=== PATIENT | female | born 1940 | race Caucasian/White ===

== ENCOUNTER 2016-11-16 10:45 | Outpatient (CLI) | payer MEDICARE, OTHER ==
[~2016-11-16] VITALS: Ht 162.6 cm; Wt 62.7 kg
[~2016-11-16 10:45] MED LIST: BETAPACE 80 MG80 MG PO; BIOTIN5 MG PO; CALTRATE-600600 MG PO; CO Q-10100 MG PO; COUMADIN5 MG PO; COUMADIN7.5 MG PO; FORTEO PEN20 MCG SQ; KLOR-CON M2020 MEQ PO; LASIX40 MG PO; LOVENOX60 MG/0.6 SQ; MULTI-DAY VITAM1 TAB PO; OCUVITE PRESERV1 TAB PO; RESTORIL22.5 MG PO; STOOL SOFTENER240 MG PO; VITAMIN C1000 MG PO; VOLTAREN100 GM TOPICAL; ZINC50 MG PO; ZYRTEC10 MG PO
[2016-11-16 12:32] VITALS: Ht 162.6 cm; Wt 62.7 kg
--- NOTE | 2016-11-16 12:44 | NUR ---
1144-IV SITED TO [facility] BLANCO X 1 22G.
--- NOTE | 2016-11-16 14:40 | NUR ---
1410-IV D/C. 1415-DISCHARGE INSTRUCTIONS REVIEWED. 1425-D/C HOME VIA WHEELCHAIR.
== END 2016-11-16 14:25 | disposition home or self-care (01) ==
LOC: D.OPS 10:45
DX: Z95.2 Presence of prosthetic heart valve (principal)

== ENCOUNTER 2018-01-21 08:58 | Outpatient (CLI) | payer MEDICARE, OTHER ==
[~2018-01-21] VITALS: Ht 162.6 cm; Wt 58.2 kg
[2018-01-21 10:45] VITALS: Ht 162.6 cm; Wt 58.2 kg
== END 2018-01-21 11:45 | disposition home or self-care (01) ==
LOC: D.OPS 08:58
DX: Z95.2 Presence of prosthetic heart valve (principal)

== ENCOUNTER 2018-04-11 11:02 | Emergency (ER) | payer MEDICARE, OTHER ==
[~2018-04-11] VITALS: Ht 162.6 cm; Wt 59.1 kg
[2018-04-11 11:12] VITALS: Ht 162.6 cm; Wt 59.1 kg
[2018-04-11] MEDS ORDERED: VOLTAREN75 MG PO (13:19)
[2018-04-11 13:44] VITALS: BP 127/62
== END 2018-04-11 13:46 | disposition home or self-care (01) ==
LOC: D.ER 11:02
DX: M79.662 Pain in left lower leg (principal); I45.6 Pre-excitation syndrome

== ENCOUNTER 2019-01-25 08:44 | Outpatient (CLI) | payer MEDICARE, OTHER ==
[~2019-01-25] VITALS: Ht 162.6 cm; Wt 57.3 kg
[~2019-01-25 08:44] MED LIST changes: -RESTORIL22.5 MG PO; +TEMAZEPAM30 MG PO; +VOLTAREN75 MG PO
[2019-01-25 10:20] VITALS: BP 122/65; Ht 162.6 cm; Wt 57.3 kg
--- NOTE | 2019-01-25 12:18 | NUR ---
1210 IV REMOVED AND PRESSURE HELD AND COBAND APPLIED TO LT WRIST
== END 2019-01-25 12:19 | disposition home or self-care (01) ==
LOC: D.OPS 08:44
PROVIDERS: ATTEND Internal Medicine Cardiovascular Disease
DX: Z95.2 Presence of prosthetic heart valve (principal)

== ENCOUNTER 2019-03-03 12:48 | Inpatient (IN) | payer MEDICARE, OTHER ==
[~2019-03-03] VITALS: Ht 162.6 cm; Wt 57.3 kg
[2019-03-03 14:29] LABS: HEMATOCRIT 25.6 % (36.0-48.0); HEMOGLOBIN 8.5 g/dL (12-16); LYMPHOCYTES 10.9 % (15-50); MCH 33.6 pg (26.0-34.0); MCHC 33.2 g/dL (31.0-37.0); MCV 101.2 fL (80.0-100.0); MEAN PLATELET VOLUME 9.4 fL (7.4-10.4); NEUTROPHILS 78.4 % (40-80); PLATELET COUNT 170 10x3/uL (130-400); RBC 2.53 10x6/uL (4.00-5.40); RDW 14.6 % (11.5-14.5); WBC 8.1 10x3/uL (4.8-10.8)
[2019-03-03 14:39] LABS: ANION GAP 13.1 mmol/L (8-16); CALCIUM 9.6 mg/dL (8.5-10.1); CARBON DIOXIDE 25.5 mmol/L (21.0-32.0); CREATININE - SERUM 0.9 mg/dL (0.6-1.3); POTASSIUM - SERUM 3.6 mmol/L (3.5-5.1)
[2019-03-03 14:45] LABS: ALBUMIN 2.7 g/dL (3.4-5.0); BILIRUBIN - TOTAL 0.86 mg/dL (0.2-1.3); MAGNESIUM - SERUM 1.7 mg/dL (1.8-2.4); PROTEIN - SERUM 5.9 g/dL (6.4-8.2)
[2019-03-03 17:09] LABS: INR 1.1 (0.85-1.17); PROTIME 13.7 SECONDS (11.6-15.0)
--- NOTE | 2019-03-03 18:46 | NUR ---
IN AND OUT CATH PERFORMED. PT UNABLE TO AMBULATE.
[2019-03-03 18:55] LABS: APPEARANCE CLEAR (CLEAR); BILIRUBIN NEGATIVE (NEGATIVE); COLOR YELLOW (YELLOW); GLUCOSE NEGATIVE (NEGATIVE); KETONE SMALL mg/dL (NEGATIVE); NITRITE NEGATIVE (NEGATIVE); PROTEIN NEGATIVE (NEGATIVE); UROBILINOGEN NORMAL (NORMAL)
--- NOTE | 2019-03-03 19:40 | NUR ---
REPORT TO CORRIE CASTILLO AT EXT 2261. PATIENT BEING ADMITTED TO ROOM 2215. REPORT TO LEATHER SEASONERGRECIA DENTON WELL.
--- NOTE | 2019-03-03 20:35 | NUR ---
PT ARRIVED TO FLOOR FROM ER VIA STRETCHER. LEFT HIP INCISION NO REDNESS AND EDGES APPROXIMATED. PT DENIES PAIN. STATES SHE IS UNABLE TO AMBULATE, CANNOT VOID ON BEDPAN AND REQUESTS A CALVIN BE PLACED. WILL CALL PHYSICIAN. REVIEWED HOME MEDS AND HISTORY. PLACED SCD'S AND TELEMETRY ON PT. OXYGEN SATS IN THE 80'S, PLACED 2L/NC ON PT. GAVE TURKEY SANDWICH AND WATER. NS INFUSING. NO OTHER NEEDS. WILL CONTINUE TO MONITOR.
[2019-03-03 21:16] VITALS: BP 132/48
[2019-03-03] MEDS ORDERED: LOPRESSOR25 MG PO (21:28)
[2019-03-03] MEDS ORDERED: KENALOG 0.1 % 115 GM TOPICAL (21:36)
--- NOTE | 2019-03-03 23:00 | NUR ---
INSERTED 16FR CALVIN CATHETER WITH NO DIFFICULTY. RECEIVED 400+ CLEAR YELLOW URINE. NO OTHER NEEDS. WILL CONTINUE TO MONITOR.
[2019-03-04 01:34] VITALS: BP 132/48; Ht 162.6 cm; Wt 57.3 kg
[2019-03-04 04:37] VITALS: BP 105/43
[2019-03-04 06:38] LABS: BASOPHILS 0.5 % (0-2); EOSINOPHILS 3.4 % (0-7); HEMATOCRIT 22.6 % (36.0-48.0); IMMATURE GRANULOCYTES 0.6 % (0-5); LYMPHOCYTES 18.4 % (15-50); MCH 33.2 pg (26.0-34.0); MCHC 32.7 g/dL (31.0-37.0); MCV 101.3 fL (80.0-100.0); MEAN PLATELET VOLUME 9.6 fL (7.4-10.4); MONOCYTES 15.6 % (2-11); NEUTROPHILS 61.5 % (40-80); PLATELET COUNT 201 10x3/uL (130-400); RBC 2.23 10x6/uL (4.00-5.40); RDW 14.7 % (11.5-14.5); WBC 6.4 10x3/uL (4.8-10.8)
[2019-03-04 06:40] LABS: ANION GAP 14.4 mmol/L (8-16); CALCIUM 8.8 mg/dL (8.5-10.1); CARBON DIOXIDE 21.7 mmol/L (21.0-32.0); CREATININE - SERUM 0.8 mg/dL (0.6-1.3); MAGNESIUM - SERUM 1.7 mg/dL (1.8-2.4); PHOSPHOROUS 2.5 mg/dL (2.5-4.9); POTASSIUM - SERUM 3.1 mmol/L (3.5-5.1)
[2019-03-04 06:42] LABS: HEMOGLOBIN 7.4 g/dL (12-16)
--- NOTE | 2019-03-04 07:33 | NUR ---
CALLED CRITICAL [facility] [address] ISSA. ORDERED 1 UNIT PRBC TO BE TRANSFUSED.
[2019-03-04 08:22] VITALS: BP 121/52
--- NOTE | 2019-03-04 08:36 | HP ---
PATIENT: DAWIT CASAS MEDICAL RECORD: [id number] ACCOUNT: [id number] LOCATION:D.MS [id number] : 41 ADMISSION DATE: 03/03/19 PCP: BECKY ISSA MD HISTORY AND PHYSICAL EXAMINATION DATE OF ADMISSION: 03/03/2019 HISTORY OF PRESENT ILLNESS: This is a 78-year-old female who was admitted under med acquisition cost estimator. The patient underwent left total hip arthroplasty on 02/27/[address] Maldonado at [facility] in [facility]. The patient states she was discharged the next day expecting no significant problems. She did very well after her right total hip arthroplasty several years ago. She was sent home, figured out that she really could not walk and she has some left lower extremity edema, she was very weak and she presented here. PAST MEDICAL HISTORY: She has paroxysmal atrial fibrillation, followed by Dr. Tabares in [place]. History of mitral valve insufficiency. 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 She has had uterine cancer in 1997. Macular degeneration. She states she had a postoperative PE in 2012. PAST SURGICAL HISTORY: She has had mitral valve replacement. She had a partial colectomy in 2003 due to noncancerous reasons. She has had cholecystectomy. She did left total hip arthroplasty in 2007. She had a right total knee arthroplasty in 2005 and then a revision in 2012. She has had a pacemaker placed. She has had hysterectomy. She has had inferior vena cava filter placed in 2012, ORIF of femur fracture in the past. ALLERGIES: SULFA AND NICKEL AND MORPHINE MAKE HER LOOPY. SHE DOES NOT WANT MORPHINE. HOME MEDICATIONS: Include metoprolol 25 mg twice a day, temazepam 30 mg p.o. at bedtime p.r.n. sleep, Lasix 20 mg every day, potassium 20 mEq every day, Coumadin 5 mg every day, Zyrtec 10 mg once a day, multivitamin once a day, and calcium plus D. SOCIAL HISTORY: She is , retired. FAMILY HISTORY: Father of bladder cancer. He also had Alzheimer's dementia. Mother of old age. She had a history of breast cancer. HABITS: No tobacco. She drinks occasional wine. No drugs. REVIEW OF SYSTEMS: GENERAL: No major weight changes. HEENT: No particular sinus or allergy problems. RESPIRATORY: No history of asthma or emphysema. CARDIAC: See above history. GASTROINTESTINAL: Denies diarrhea, constipation or heartburn. GENITOURINARY: No significant problems there. MUSCULOSKELETAL: She has had osteoarthritis and joint replacements. NEUROLOGIC: No migraines or seizures. PSYCHIATRIC: Denies depression or melancholia. PHYSICAL EXAMINATION: HISTORY AND PHYSICAL [id number] DAWIT CASAS VITAL SIGNS: Temperature 97.7, pulse 90, respirations 20, blood pressure 153/76. GENERAL: Generally, she appears in no acute distress. She is lying comfortably in bed in the Emergency Department. SKIN: Warm and dry. HEENT: Grossly within normal limits. NECK: Supple. No JVD or bruit. HEART: At this time regular rate and rhythm. There is no murmur. LUNGS: Clear. ABDOMEN: Soft. EXTREMITIES: She has wound to the left hip and no sign of infection. She has 2+ lower extremity edema on the left leg. LABORATORY DATA: CBC with a white count of 8100, hemoglobin 8.5, hematocrit 25.6. Basic metabolic panel is unremarkable. INR 1.10. Magnesium 1.7. Liver functions are fine. D-dimer elevated at 1.28. X-ray of the left hip shows arthroplasty hardware intact. IMAGING: Chest x-ray shows no acute process. She had left venous Doppler ultrasound for the swelling throughout her leg. There was no DVT found. CTA of the chest with PE protocol was done for elevated D-dimer, there is no PE, nothing remarkable. ASSESSMENT: 1. Status post left total hip arthroplasty with weakness. 2. Postop anemia. 3. Paroxysmal atrial fibrillation, on chronic Coumadin therapy. PLAN: Physical therapy tomorrow. We will continue Coumadin. planner intern to talk with the patient about discharge to either inpatient facility skilled or home with physical therapy. The patient would really like to go home with physical therapy. Other tests or procedures as warranted. TRANSINT:[id number] Voice Confirmation ID: [id number] DOCUMENT ID: [id number] HISTORY AND PHYSICAL [id number] DAWIT CASAS WILLIAM MD at 0836 CC: [id number] DICTATION DATE: 1940 REGISTERED TRAVEL NURSE: 03/04/19 0341 ADM IN [place] [id number] [place] [id number]
--- NOTE | 2019-03-04 10:00 | NUR ---
STARTED PT UNIT OF BLOOD, PT TOLERATING WELL NO S/S OF DISTRESS PT SPOUSE AT BEDSIDE, CONTINUE WITH PLAN OF CARE
--- NOTE | 2019-03-04 12:43 | NUR ---
PT BLOOD COMPLETED, NO OTHER NEEDS VOICED
[2019-03-04 19:30] VITALS: BP 127/55
[2019-03-05 00:30] VITALS: BP 120/49
[2019-03-05 04:30] VITALS: BP 97/36
[2019-03-05 06:11] LABS: BASOPHILS 0.4 % (0-2); EOSINOPHILS 3.5 % (0-7); IMMATURE GRANULOCYTES 1.2 % (0-5); LYMPHOCYTES 18.3 % (15-50); MCH 32.1 pg (26.0-34.0); MCHC 32.6 g/dL (31.0-37.0); MEAN PLATELET VOLUME 9.4 fL (7.4-10.4); MONOCYTES 13.4 % (2-11); NEUTROPHILS 63.2 % (40-80); PLATELET COUNT 232 10x3/uL (130-400); RDW 15.9 % (11.5-14.5)
[2019-03-05 06:13] LABS: HEMATOCRIT 28.8 % (36.0-48.0); HEMOGLOBIN 9.4 g/dL (12-16); MCV 98.3 fL (80.0-100.0); RBC 2.93 10x6/uL (4.00-5.40); WBC 8.2 10x3/uL (4.8-10.8)
[2019-03-05 06:26] LABS: INR 1.52 (0.85-1.17); PROTIME 17.7 SECONDS (11.6-15.0)
[2019-03-05 06:47] LABS: ANION GAP 11.6 mmol/L (8-16); CALCIUM 8.6 mg/dL (8.5-10.1); CREATININE - SERUM 0.8 mg/dL (0.6-1.3)
[2019-03-05 06:48] LABS: POTASSIUM - SERUM 3.6 mmol/L (3.5-5.1)
[2019-03-05 07:46] VITALS: BP 132/55
--- NOTE | 2019-03-05 09:08 | NUR ---
PATIENT SITTING UP IN BED STATED SHE WANTYED TO WALK TO SINK TO [facility] UP, ENCOURAGED PT TO WAIT FOR PT SO WE CAN KNOW HER BASELINE WITH RECENT HIP SURGERY. PT AGREEABLE, NO OTHER NEEDS VOICED, CONTINUE WITH PLAN OF CARE.
--- NOTE | 2019-03-05 10:39 | NUR ---
I have reviewed this patient and I concur with the Shift Assessment completed by the Licensed Practical Nurse today this shift.
[2019-03-05 12:08] VITALS: BP 121/61
--- NOTE | 2019-03-05 12:42 | MORECARE ---
CASE MANAGEMENT DISCHARGE SUMMARY PATIENT: DAWIT CASAS UNIT: [id number] ADM DATE: 03/03/19 AGE: 78 : 41 SEX: F ROOM/BED: D.2215 AUTHOR: LIS CHIRINOS PHYSICIAN: REFERRING PHYSICIAN: BECKY ISSA MD DATE OF SERVICE: 03/05/19 Discharge Plan Patient Name: DAWIT CASAS [facility] [facility] 1940 Planned Disposition: Inpatient Rehab Anticipated Discharge Date: Discharge Date: Expected LOS: Initial Reviewer: [email or web address] Initial Review Date: 03/03/2019 Generated: 03/05/19 1:42 pm DCPIA - Discharge Planning Initial Assessment Updated by [email or web address]: Priscila Terry on 03/05/19 12:41 pm * Is the patient Alert and Oriented? Yes * How many steps to enter\exit or inside your home? 2 steps * PCP DR Lo Clemente New to [place] [id number] * Pharmacy [employer] for moth exterminator meds [facility] in [place] for short term meds * Preadmission Environment Home with Family * ADLs Partial Dependent * Partial ADLs (Assistance needed) Ambulation * Equipment Other * Other Equipment two Rollators Raised commode walk in tub * List name and contact numbers for known caregivers / representatives who currently or will assist patient after discharge: [facility]- [phone] * Verbal permission to speak to the caregivers and representatives has been obtained from the patient. No * Community resources currently utilized None * Please name any agencies selected above. N/A * Additional services required to return to the preadmission environment? Yes * Can the patient safely return to the preadmission environment? Yes * Has this patient been hospitalized within the prior 30 days at any hospital? Yes Patient Name: DAWIT CASAS Page [id number] at 1242 All edits/amendments must be made on the electronic document DICTATION DATE: 03/05/19 1242 DESIGN CELL ENGINEER: LAURA 03/05/19 1242 RPT#: [id number] DC DATE: STATUS: ADM IN [facility] [address] [place] [address] END OF REPORT
--- NOTE | 2019-03-05 13:02 | MORECARE ---
CASE MANAGEMENT DISCHARGE SUMMARY PATIENT: DAWIT CASAS UNIT: [id number] ADM DATE: 03/03/19 AGE: 78 : 41 SEX: F ROOM/BED: D.8085 AUTHOR: CANDIS,DOC PHYSICIAN: REFERRING PHYSICIAN: CHET ISSA MD DATE OF SERVICE: 03/05/19 Discharge Plan Patient Name: DAWIT CASAS Facility: [facility]:[place] : 1940 Planned Disposition: Inpatient Rehab Anticipated Discharge Date: Discharge Date: Expected LOS: Initial Reviewer: [email or web address] Initial Review Date: 03/03/2019 Generated: 03/05/19 2:01 pm Comments DCP- Discharge Planning Updated by [email or web address]: Priscila Terry on 03/05/19 11:[address] CM MET THE PATIENT AT THE BEDSIDE. CM EXPLAINED MY ROLE. REQUESTED AND RECEIVED PERMISSION TO PROCEED WITH ASSESSMENT. THE PATIENT HAD JUST COMPLETED HER PHYSICAL THERAPY SESSION. SHE HAD DISCUSSED ACUTE REHAB WITH THE PHYSICAL THERAPIST. SHE EXPLAINED SHE HAD JUST BEEN DISCHARGED AFTER HIP SURGERY W/ DR ZAIDI IN [place]. SHE WAS VERY WEAK AT HOME AND COULD NOT AMBULATE OR TRANSFER SAFELY. SHE HAS A LONG HISTORY OF ORTHOPEDIC INJURIES AND TREATMENTS. CM DISCUSSED SKILLED AND ACUTE REHAB. CM ALSO DISCUSSED HOME HEALTH SERVICES. SHE IS IN AGREEMENT WITH PHYSICAL THERAPY'S RECOMMENDATION FOR ACUTE REHAB. CM REVIEWED PROVIDERS. SHE WANTS TO BE REFERRED TO [facility]. SHE LIVES W/ HER IN [facility]. THERE 2 STEPS TO ENTER HER HOME FROM THE GARAGE. HER ASSSIT WITH HER CARE WHEN NEEDED. SHE HAS 2 ROLLATORS ONE FOR THE HOME AND THE OTHER IN THE CAR FOR OUTSIDE. SHE ALSO HAS A STANDARD WALKER. SHE HAS A WALK IN SHOWER. DENIES ANY ADDITIONAL DME. PCP- [facility]- JUSTIN AND GERONTOLOGY PROMOTIONAL MARKETING AGENT- DR VILLA IN [place]. PHARMACY- [facility]. REFERRAL TO BE FORWARDED TO [facility] WEDNESDAY BY WEEKDAY CM. DCPIA - Discharge Planning Initial Assessment Updated by [id number]: Priscila Terry on 03/05/19 12:41 pm * Is the patient Alert and Oriented? Yes * How many steps to enter\exit or inside your home? 2 steps * PCP DR Lo Clemente New to [address] * Pharmacy [employer] for exterminator termite meds [facility] in [place] for short term meds * Preadmission Environment Home with Family * ADLs Partial Dependent * Partial ADLs (Assistance needed) Ambulation * Equipment Other * Other Equipment two Rollators Raised commode walk in tub * List name and contact numbers for known caregivers / representatives who currently or will assist patient after discharge: [facility] [phone] * Verbal permission to speak to the caregivers and representatives has been obtained from the patient. No * Community resources currently utilized None * Please name any agencies selected above. N/A * Additional services required to return to the preadmission environment? Yes * Can the patient safely return to the preadmission environment? Yes * Has this patient been hospitalized within the prior 30 days at any hospital? Yes Last DP export: 03/05/19 11:42 Patient Name: DAWIT CASAS Page 46780 at 1302 All edits/amendments must be made on the electronic document DICTATION DATE: 03/05/19 1301 BRIDGES AND BUILDINGS SUPERVISOR: LAURA 03/05/19 1301 RPT#: [id number] DC DATE: STATUS: [facility] [address] [place] [address] END OF REPORT
[2019-03-05 16:17] VITALS: BP 127/88
[2019-03-05 20:01] VITALS: BP 113/55
[2019-03-06 00:30] VITALS: BP 119/64
[2019-03-06 05:00] VITALS: BP 121/70
[2019-03-06 05:45] LABS: BASOPHILS 0.3 % (0-2); HEMATOCRIT 28.3 % (36.0-48.0); HEMOGLOBIN 9.3 g/dL (12-16); IMMATURE GRANULOCYTES 0.9 % (0-5); LYMPHOCYTES 15.2 % (15-50); MCH 32.5 pg (26.0-34.0); MCHC 32.9 g/dL (31.0-37.0); MEAN PLATELET VOLUME 9.4 fL (7.4-10.4); MONOCYTES 14.8 % (2-11); NEUTROPHILS 65.8 % (40-80); PLATELET COUNT 249 10x3/uL (130-400); RBC 2.86 10x6/uL (4.00-5.40); RDW 15.6 % (11.5-14.5); WBC 7.6 10x3/uL (4.8-10.8)
[2019-03-06 06:15] LABS: INR 2.03 (0.85-1.17); PROTIME 22.3 SECONDS (11.6-15.0)
[2019-03-06 06:26] LABS: ANION GAP 8.8 mmol/L (8-16); CALCIUM 8.2 mg/dL (8.5-10.1); CARBON DIOXIDE 29.8 mmol/L (21.0-32.0); CREATININE - SERUM 0.8 mg/dL (0.6-1.3); POTASSIUM - SERUM 3.6 mmol/L (3.5-5.1)
[2019-03-06 08:33] VITALS: BP 149/72
[2019-03-06] MEDS ORDERED: COUMADIN5 MG PO (08:52)
--- NOTE | 2019-03-06 11:11 | MORECARE ---
CASE MANAGEMENT DISCHARGE SUMMARY PATIENT: DAWIT CASAS UNIT: [id number] ADM DATE: 03/03/19 AGE: 78 : 41 SEX: F ROOM/BED: D.3945 AUTHOR: CANDIS,DOC PHYSICIAN: REFERRING PHYSICIAN: CHET ISSA MD DATE OF SERVICE: 03/06/19 Discharge Plan Patient Name: DAWIT CASAS Facility: [facility]:[place] : 1940 Planned Disposition: Inpatient Rehab Anticipated Discharge Date: Discharge Date: Expected LOS: Initial Reviewer: [email or web address] Initial Review Date: 03/03/2019 Generated: 03/06/19 12:10 pm Comments DCP- Discharge Planning Updated by [email or web address]: Priscila Terry on 03/05/19 11:[address] CM MET THE PATIENT AT THE BEDSIDE. CM EXPLAINED MY ROLE. REQUESTED AND RECEIVED PERMISSION TO PROCEED WITH ASSESSMENT. THE PATIENT HAD JUST COMPLETED HER PHYSICAL THERAPY SESSION. SHE HAD DISCUSSED ACUTE REHAB WITH THE PHYSICAL THERAPIST. SHE EXPLAINED SHE HAD JUST BEEN DISCHARGED AFTER HIP SURGERY W/ DR ZAIDI IN [place]. SHE WAS VERY WEAK AT HOME AND COULD NOT AMBULATE OR TRANSFER SAFELY. SHE HAS A LONG HISTORY OF ORTHOPEDIC INJURIES AND TREATMENTS. CM DISCUSSED SKILLED AND ACUTE REHAB. CM ALSO DISCUSSED HOME HEALTH SERVICES. SHE IS IN AGREEMENT WITH PHYSICAL THERAPY'S RECOMMENDATION FOR ACUTE REHAB. CM REVIEWED PROVIDERS. SHE WANTS TO BE REFERRED TO [facility]UTE RE[facility]. SHE LIVES W/ HER IN [facility]. THERE 2 STEPS TO ENTER HER HOME FROM THE GARAGE. HER ASSSIT WITH HER CARE WHEN NEEDED. SHE HAS 2 ROLLATORS ONE FOR THE HOME AND THE OTHER IN THE CAR FOR OUTSIDE. SHE ALSO HAS A STANDARD WALKER. SHE HAS A WALK IN SHOWER. DENIES ANY ADDITIONAL DME. PCP- [facility]- JUSTIN AND GERONTOLOGY SUPERVISOR FUR FLOOR WORKER- DR VILLA IN [place]. PHARMACY- [facility]. REFERRAL TO BE FORWARDED TO [facility] WEDNESDAY BY WEEKDAY CM. DCPIA - Discharge Planning Initial Assessment Updated by [email or web address]: Priscila Terry on 03/05/19 12:41 pm * Is the patient Alert and Oriented? Yes * How many steps to enter\exit or inside your home? 2 steps * PCP DR Lo Clemente New to [address] * Pharmacy [employer] for fpc meds [facility] in [place] for short term meds * Preadmission Environment Home with Family * ADLs Partial Dependent * Partial ADLs (Assistance needed) Ambulation * Equipment Other * Other Equipment two Rollators Raised commode walk in tub * List name and contact numbers for known caregivers / representatives who currently or will assist patient after discharge: [facility] [phone] * Verbal permission to speak to the caregivers and representatives has been obtained from the patient. No * Community resources currently utilized None * Please name any agencies selected above. N/A * Additional services required to return to the preadmission environment? Yes * Can the patient safely return to the preadmission environment? Yes * Has this patient been hospitalized within the prior 30 days at any hospital? Yes External Providers External Provider: [facility] Contact Date: Service Request Date: Service Type: Resolution: Reviewer: Comments: Last DP export: 03/05/19 12:02 Patient Name: DAWIT CASAS Page 76805 at 1111 All edits/amendments must be made on the electronic document DICTATION DATE: 03/06/19 111 SHUTTLE FINAL INSPECTOR: LAURA 03/06/19 111 RPT#: [id number] DC DATE: STATUS: ADM IN [facility] [address] [place] [address] END OF REPORT
--- NOTE | 2019-03-06 11:52 | MORECARE ---
CASE MANAGEMENT DISCHARGE SUMMARY PATIENT: DAWIT CASAS UNIT: [id number] ADM DATE: 03/03/19 AGE: 78 : 41 SEX: F ROOM/BED: D.7125 AUTHOR: CANDIS,DOC PHYSICIAN: REFERRING PHYSICIAN: CHET ISSA MD DATE OF SERVICE: 03/06/19 Discharge Plan Patient Name: DAWIT CASAS Facility: [facility]:[place] : 1940 Planned Disposition: Inpatient Rehab Anticipated Discharge Date: Discharge Date: Expected LOS: Initial Reviewer: [id number] Initial Review Date: 03/03/2019 Generated: 03/06/19 12:52 pm Comments DCP- Discharge Planning Updated by [id number]: Farhana Martinez on 03/06/19 10:[address] SPOKE WITH PATIENT ABOUT DC PLAN, SHE WOULD LIKE TO GO TO [facility]. REFERRAL SENT TO [place]. IMM SERVED AND EXPLAINED. AT BEDSIDE. CM TO JOEL TO FOLLOW AND ASSIST NEEDED DCP- Discharge Planning Updated by [id number]: Priscila Terry on 03/05/19 11:[address] CM MET THE PATIENT AT THE BEDSIDE. CM EXPLAINED MY ROLE. REQUESTED AND RECEIVED PERMISSION TO PROCEED WITH ASSESSMENT. THE PATIENT HAD JUST COMPLETED HER PHYSICAL THERAPY SESSION. SHE HAD DISCUSSED ACUTE REHAB WITH THE PHYSICAL THERAPIST. SHE EXPLAINED SHE HAD JUST BEEN DISCHARGED AFTER HIP SURGERY W/ DR ZAIDI IN [place]. SHE WAS VERY WEAK AT HOME AND COULD NOT AMBULATE OR TRANSFER SAFELY. SHE HAS A LONG HISTORY OF ORTHOPEDIC INJURIES AND TREATMENTS. CM DISCUSSED SKILLED AND ACUTE REHAB. CM ALSO DISCUSSED HOME HEALTH SERVICES. SHE IS IN AGREEMENT WITH PHYSICAL THERAPY'S RECOMMENDATION FOR ACUTE REHAB. CM REVIEWED PROVIDERS. SHE WANTS TO BE REFERRED TO [facility]UTE RE[facility]. SHE LIVES W/ HER IN [facility]. THERE 2 STEPS TO ENTER HER HOME FROM THE GARAGE. HER ASSSIT WITH HER CARE WHEN NEEDED. SHE HAS 2 ROLLATORS ONE FOR THE HOME AND THE OTHER IN THE CAR FOR OUTSIDE. SHE ALSO HAS A STANDARD WALKER. SHE HAS A WALK IN SHOWER. DENIES ANY ADDITIONAL DME. PCP- [facility]- JUSTIN AND GERONTOLOGY IT TECHNICAL SUPPORT SPECIALIST- DR VILLA IN [place]. PHARMACY- [facility]. REFERRAL TO BE FORWARDED TO [facility] WEDNESDAY BY DAY CM. LALAPIA - Discharge Planning Initial Assessment Updated by [email or web address]: Priscila Terry on 03/05/19 12:41 pm * Is the patient Alert and Oriented? Yes * How many steps to enter\exit or inside your home? 2 steps * PCP DR Lo Clemente New to [address] * Pharmacy [employer] for custodial meds [facility] in [facility] for short term meds * Preadmission Environment Home with Family * ADLs Partial Dependent * Partial ADLs (Assistance needed) Ambulation * Equipment Other * Other Equipment two Rollators Raised commode walk in tub * List name and contact numbers for known caregivers / representatives who currently or will assist patient after discharge: [facility] [phone] * Verbal permission to speak to the caregivers and representatives has been obtained from the patient. No * Community resources currently utilized None * Please name any agencies selected above. N/A * Additional services required to return to the preadmission environment? Yes * Can the patient safely return to the preadmission environment? Yes * Has this patient been hospitalized within the prior 30 days at any hospital? Yes Coverage Notice Reviewer: [email or web address] Desiree Martinez Notice Issued Date-Time: 03/06/2019 11:25 Notice Type: IM Discharge Notice Notice Delivered To: Patient Relationship to Patient: Writer Editor Name: Delivery Method: HAND - Hand Delivered Giovanna Days: Prior Verbal Notification: Recipient Understood Notice: Yes Recipient Signature: Yes Med Rec Note Co-signed by Attending: Coverage Notice Comment: Last DP export: 03/06/19 10:11 Patient Name: DAWIT CASAS Page 31369 at 1152 All edits/amendments must be made on the electronic document DICTATION DATE: 03/06/19 1152 WHEEL PRESS OPERATOR: LAURA 03/06/19 1152 RPT#: [id number] DC DATE: STATUS: ADM IN [facility] [address] [place] [address] END OF REPORT
[2019-03-06 13:34] VITALS: BP 134/71
--- NOTE | 2019-03-06 14:54 | MORECARE ---
CASE MANAGEMENT DISCHARGE SUMMARY PATIENT: DAWIT CASAS UNIT: [id number] ADM DATE: 03/03/19 AGE: 78 : 41 SEX: F ROOM/BED: D.1715 AUTHOR: CANDIS,DOC PHYSICIAN: REFERRING PHYSICIAN: BECKY ISSA MD DATE OF SERVICE: 03/06/19 Discharge Plan Patient Name: DAWIT CASAS Facility: [facility]:[place] : 1940 Planned Disposition: Inpatient Rehab Anticipated Discharge Date: Discharge Date: Expected LOS: Initial Reviewer: [email or web address] Initial Review Date: 03/03/2019 Generated: 03/06/19 3:54 pm Comments DCP- Discharge Planning Updated by [email or web address]: Farhana Martinez on 03/06/19 1:[address] PATIENT HAS BEEN ACCEPTED TO [facility], THEY WILL PICK HER UP AT 3:30 TO 4:00PM DCP- Discharge Planning Updated by [id number]: Farhana Martinez on 03/06/19 10:[address] SPOKE WITH PATIENT ABOUT DC PLAN, SHE WOULD LIKE TO GO TO [facility]. REFERRAL SENT TO [place]. JOSE JUAN SERVED AND EXPLAINED. AT BEDSIDE. CM TO JOEL TO FOLLOW AND ASSIST NEEDED DCP- Discharge Planning Updated by [id number]: Priscila Terry on 03/05/19 11:[address] CM MET THE PATIENT AT THE BEDSIDE. CM EXPLAINED MY ROLE. REQUESTED AND RECEIVED PERMISSION TO PROCEED WITH ASSESSMENT. THE PATIENT HAD JUST COMPLETED HER PHYSICAL THERAPY SESSION. SHE HAD DISCUSSED ACUTE REHAB WITH THE PHYSICAL THERAPIST. SHE EXPLAINED SHE HAD JUST BEEN DISCHARGED AFTER HIP SURGERY W/ DR ZAIDI IN [place]. SHE WAS VERY WEAK AT HOME AND COULD NOT AMBULATE OR TRANSFER SAFELY. SHE HAS A LONG HISTORY OF ORTHOPEDIC INJURIES AND TREATMENTS. CM DISCUSSED SKILLED AND ACUTE REHAB. CM ALSO DISCUSSED HOME HEALTH SERVICES. SHE IS IN AGREEMENT WITH PHYSICAL THERAPY'S RECOMMENDATION FOR ACUTE REHAB. CM REVIEWED PROVIDERS. SHE WANTS TO BE REFERRED TO [facility] ACUTE REHAB. SHE LIVES W/ HER IN [facility]. THERE 2 STEPS TO ENTER HER HOME FROM THE GARAGE. HER ASSSIT WITH HER CARE WHEN NEEDED. SHE HAS 2 ROLLATORS ONE FOR THE HOME AND THE OTHER IN THE CAR FOR OUTSIDE. SHE ALSO HAS A STANDARD WALKER. SHE HAS A WALK IN SHOWER. DENIES ANY ADDITIONAL DME. PCP- SIL[facility]- IM AND GERONTOLOGY SUGAR CANE GROWER- DR VILLA IN [place]. PHARMACY- [facility]. REFERRAL TO BE FORWARDED TO [facility] WEDNESDAY BY WEEKDAY CMMatt DCPIA - Discharge Planning Initial Assessment Updated by [id number]: Priscila Terry on 03/05/19 12:41 pm * Is the patient Alert and Oriented? Yes * How many steps to enter\exit or inside your home? 2 steps * PCP DR Lo Clemente New to [address] * Pharmacy [employer] for buttermaker meds [facility] in [facility] for short term meds * Preadmission Environment Home with Family * ADLs Partial Dependent * Partial ADLs (Assistance needed) Ambulation * Equipment Other * Other Equipment two Rollators Raised commode walk in tub * List name and contact numbers for known caregivers / representatives who currently or will assist patient after discharge: [facility]- [phone] * Verbal permission to speak to the caregivers and representatives has been obtained from the patient. No * Community resources currently utilized None * Please name any agencies selected above. N/A * Additional services required to return to the preadmission environment? Yes * Can the patient safely return to the preadmission environment? Yes * Has this patient been hospitalized within the prior 30 days at any hospital? Yes Coverage Notice Reviewer: [email or web address] Desiree Martinez Notice Issued Date-Time: 03/06/2019 11:25 Notice Type: IM Discharge Notice Notice Delivered To: Patient Relationship to Patient: Car Runner Name: Delivery Method: HAND - Hand Delivered Giovanna Days: Prior Verbal Notification: Recipient Understood Notice: Yes Recipient Signature: Yes Med Rec Note Co-signed by Attending: Coverage Notice Comment: Last DP export: 03/06/19 10:52 Patient Name: DAWIT CASAS Page [id number] at 1454 All edits/amendments must be made on the electronic document DICTATION DATE: 03/06/191453 ARCHITECTURE TECHNICIAN: LAURA 03/06/191453 RPT#: [id number] PA DATE: STATUS: ADM IN [facility] [address] [place] [address] END OF REPORT
--- NOTE | 2019-03-06 16:00 | NUR ---
PATIENT CALVIN REMOVED BY STUDENT AND INSTRUCTOR. DRESSED AND TELEMETRY REMOVED. GOING TO [facility]. DISCHARGE INSTRUCTIONS GIVEN. NO QUESTIONS AT THIS TIME. CALL LIGHT WITHIN REACH.
--- NOTE | 2019-03-06 16:19 | NUR ---
PATIENT TO [facility] .
--- NOTE | 2019-03-09 11:01 | MORECARE ---
CASE MANAGEMENT DISCHARGE SUMMARY PATIENT: DAWIT CASAS UNIT: [id number] ADM DATE: 03/03/19 AGE: 78 : 41 SEX: F ROOM/BED: D.7385 AUTHOR: CANDIS,DOC PHYSICIAN: REFERRING PHYSICIAN: BECKY ISSA MD DATE OF SERVICE: 03/09/19 Discharge Plan Patient Name: DAWIT CASAS Facility: [facility]:[place] : 1940 Planned Disposition: Inpatient Rehab Anticipated Discharge Date: Discharge Date: 03/06/2019 Expected LOS: 0 Initial Reviewer: [email or web address] Initial Review Date: 03/03/2019 Generated: 03/09/19 12:01 pm Comments DCP- Discharge Planning Updated by [email or web address]: Farhana Martinez on 03/06/19 1:[address] PATIENT HAS BEEN ACCEPTED TO [facility], THEY WILL PICK HER UP AT 3:30 TO 4:00PM DCP- Discharge Planning Updated by [id number]: Farhana Martinez on 03/06/19 10:[address] SPOKE WITH PATIENT ABOUT DC PLAN, [facility] REFERRAL SENT TO [place]. JOSE JUAN SERVED AND EXPLAINED. AT BEDSIDE. CM TO JOEL TO FOLLOW AND ASSIST NEEDED DCP- Discharge Planning Updated by [email or web address]: Priscila Terry on 03/05/19 11:[address] CM MET THE PATIENT AT THE BEDSIDE. CM EXPLAINED MY ROLE. REQUESTED AND RECEIVED PERMISSION TO PROCEED WITH ASSESSMENT. THE PATIENT HAD JUST COMPLETED HER PHYSICAL THERAPY SESSION. SHE HAD DISCUSSED ACUTE REHAB WITH THE PHYSICAL THERAPIST. SHE EXPLAINED SHE HAD JUST BEEN DISCHARGED AFTER HIP SURGERY W/ DR ZAIDI IN [place]. SHE WAS VERY WEAK AT HOME AND COULD NOT AMBULATE OR TRANSFER SAFELY. SHE HAS A LONG HISTORY OF ORTHOPEDIC INJURIES AND TREATMENTS. CM DISCUSSED SKILLED AND ACUTE REHAB. CM ALSO DISCUSSED HOME HEALTH SERVICES. SHE IS IN AGREEMENT WITH PHYSICAL THERAPY'S RECOMMENDATION FOR ACUTE REHAB. CM REVIEWED PROVIDERS. SHE [facility]. SHE LIVES W/ HER IN [facility]. THERE 2 STEPS TO ENTER HER HOME FROM THE GARAGE. HER ASSSIT WITH HER CARE WHEN NEEDED. SHE HAS 2 ROLLATORS ONE FOR THE HOME AND THE OTHER IN THE CAR FOR OUTSIDE. SHE ALSO HAS A STANDARD WALKER. SHE HAS A WALK IN SHOWER. DENIES ANY ADDITIONAL DME. PCP- [facility]- IM AND GERONTOLOGY DRUM OPERATOR- DR VILLA IN [place]. PHARMACY- [facility]. [facility]DAY [facility] DCPIA - Discharge Planning Initial Assessment Updated by [email or web address]: Priscila Terry on 03/05/19 12:41 pm * Is the patient Alert and Oriented? Yes * How many steps to enter\exit or inside your home? 2 steps * PCP DR Lo Clemente New to [facility] * Pharmacy [facility] for [facility] med[facility] for short term meds * Preadmission Environment Home with Family * ADLs Partial Dependent * Partial ADLs (Assistance needed) Ambulation * Equipment Other * Other Equipment two Rollators Raised commode walk in tub * List name and contact numbers for known caregivers / representatives who currently or will assist patient after discharge: [facility]- [phone] * Verbal permission to speak to the caregivers and representatives has been obtained from the patient. No * Community resources currently utilized None * Please name any agencies selected above. N/A * Additional services required to return to the preadmission environment? Yes * Can the patient safely return to the preadmission environment? Yes * Has this patient been hospitalized within the prior 30 days at any hospital? Yes Coverage Notice Reviewer: [id number] Desiree Martinez Notice Issued Date-Time: 03/06/2019 11:25 Notice Type: IM Discharge Notice Notice Delivered To: Patient Relationship to Patient: Associate Media Director Name: Delivery Method: HAND - Hand Delivered Giovanna Days: Prior Verbal Notification: Recipient Understood Notice: Yes Recipient Signature: Yes Med Rec Note Co-signed by Attending: Coverage Notice Comment: Last DP export: 03/06/19 1:55 Patient Name: DAWIT CASAS Page 85008 at 1101 All edits/amendments must be made on the electronic document DICTATION DATE: 03/09/19 1100 SOLAR ENERGY SALES SPECIALIST: LAURA 03/09/19 1100 RPT#: [id number] DC DATE:03/06/19 STATUS: DIS IN [facility] [address] [place] [address] END OF REPORT
== END 2019-03-06 16:30 | DRG 812 ==
LOC: D.ER 12:48 → D.MS 18:37
PROVIDERS: Family Medicine; ADMIT Family Medicine; ATTEND Family Medicine
DX: D64.9 Anemia, unspecified (principal); R53.1 Weakness; I48.0 Paroxysmal atrial fibrillation; Z79.01 Long term (current) use of anticoagulants; R60.0 Localized edema; G89.18 Other acute postprocedural pain

== ENCOUNTER 2019-03-23 08:37 | Inpatient (IN) | payer MEDICARE, OTHER ==
[~2019-03-23] VITALS: Ht 162.6 cm; Wt 60.0 kg
[2019-03-23] VITALS (9 sets, daily range): BP systolic 104–146; BP diastolic 38–97; Ht 162.6 cm; Wt 60.0 kg
[~2019-03-23 08:37] MED LIST changes: +KENALOG 0.1 % 115 GM TOPICAL; +LOPRESSOR25 MG PO
--- NOTE | 2019-03-23 08:50 | NUR ---
[facility] # [id number]
--- NOTE | 2019-03-23 09:06 | NUR ---
PT MOVED TO T4
[2019-03-23 09:19] LABS: HEMATOCRIT 27.2 % (36.0-48.0); HEMOGLOBIN 8.8 g/dL (12-16); LYMPHOCYTES 13.2 % (15-50); MCH 33.8 pg (26.0-34.0); MCHC 32.4 g/dL (31.0-37.0); MCV 104.6 fL (80.0-100.0); MEAN PLATELET VOLUME 8.7 fL (7.4-10.4); NEUTROPHILS 75.5 % (40-80); PLATELET COUNT 267 10x3/uL (130-400); RDW 16.7 % (11.5-14.5); WBC 7.5 10x3/uL (4.8-10.8)
--- NOTE | 2019-03-23 09:22 | NUR ---
PT TO CT VIA STRETCHER;
[2019-03-23 09:25] LABS: INR 3.87 (0.85-1.17); PROTIME 37.2 SECONDS (11.6-15.0)
[2019-03-23 09:26] LABS: CALC OSMOLALITY 288 mosm/kg (275-300); CALCIUM 9.6 mg/dL (8.5-10.1); CARBON DIOXIDE 27.5 mmol/L (21.0-32.0); CHLORIDE - SERUM 105 mmol/L (98-107); CREATININE - SERUM 1.3 mg/dL (0.6-1.3); GLUCOSE 121 mg/dL (74-106); POTASSIUM - SERUM 3.4 mmol/L (3.5-5.1); SODIUM 143 mmol/L (136-145); UREA NITROGEN 22 mg/dL (7-18); eGFR NON AFRICAN AMERICAN 42 mL/min (90-120)
[2019-03-23 09:27] LABS: APTT 113.5 SECONDS (22.8-39.4)
[2019-03-23 09:41] LABS: ALBUMIN 3.1 g/dL (3.4-5.0); ALKALINE PHOSPHATASE 200 U/L (46-116); ALT (SGPT) 24 U/L (10-68); BILIRUBIN - TOTAL 0.54 mg/dL (0.2-1.3); CKMB 1.3 U/L (0.0-3.6); CREATINE KINASE 57 UL (21-215); PROTEIN - SERUM 6.8 g/dL (6.4-8.2); TROPONIN-I < 0.017 ng/mL (0.000-0.060)
--- NOTE | 2019-03-23 09:48 | NUR ---
PT RETURNED FROM CT; CONSENT FORMS FOR ANESTHESIA AND PROCEDURE SIGNED BY PATIENT;
--- NOTE | 2019-03-23 10:30 | NUR ---
DR TAMEZ IV GAVE PROPOFOL 40 MG IV; IV FLUSED; LEFT HIP CLOSED REDUCTION COMPLETED BY DR RODRIGUEZ; PROCEDURE COMPLETE @ 1031; PT AWAKE AND TALKING 2 1047; SHE DRIFTS OFF TO SLEEP SHORTLY AFTERWARDS; AWAKES TO VERBAL STIMULI;
[2019-03-23 10:53] LABS: APPEARANCE HAZY (CLEAR); BILIRUBIN NEGATIVE (NEGATIVE); COLOR YELLOW (YELLOW); GLUCOSE NEGATIVE (NEGATIVE); KETONE NEGATIVE (NEGATIVE); NITRITE NEGATIVE (NEGATIVE); PROTEIN TRACE mg/dL (NEGATIVE); SPECIFIC GRAVITY 1.015 (1.005-1.020); UROBILINOGEN NORMAL (NORMAL)
[2019-03-23 10:54] LABS: AMORPHOUS SEDIMENT <1+ /lpf (NONE SEEN); BACTERIA FEW /hpf (NEGATIVE); EPITHELIAL CELLS 0-5 /hpf (0-5); MUCUS <1+ /lpf (NONE SEEN); RED CELLS - URINE NONE SEEN /hpf (0-5); WHITE CELLS - URINE RARE /hpf (NEGATIVE)
--- NOTE | 2019-03-23 11:00 | NUR ---
SPOUSE AT BEDSIDE; PT HAS NO C/O NAUSEA AT PRESENT TIME;
--- NOTE | 2019-03-23 13:18 | MORECARE ---
CASE MANAGEMENT DISCHARGE SUMMARY PATIENT: DAWIT CASAS UNIT: [id number] ADM DATE: 03/23/19 AGE: 78 : 41 SEX: F ROOM/BED: D.2212 AUTHOR: CANDIS,DOC PHYSICIAN: REFERRING PHYSICIAN: CHIVO PHAM MD DATE OF SERVICE: 03/23/19 Discharge Plan Patient Name: DAWIT CASAS Facility: [facility]:[place] : 1940 Planned Disposition: Anticipated Discharge Date: Discharge Date: Expected LOS: Initial Reviewer: [email or web address] Initial Review Date: 03/23/2019 Generated: 03/23/19 2:18 pm Comments DCP- Discharge Planning Updated by [id number]: Carlie Granados on 03/23/19 12:[address] CM met with patient/spouse to discuss initial discharge planning. Spouse/patient is in agreement to proceed with assessment. Patient is alert/oriented. Stairs/steps: PCP: Unknown, but in [place]. Pharmacy: [facility], [facility], [facility]. Patient has been able to obtan all prescription drugs. HHS: Yes, spouse cannot remember the name. CM contacted [facility] and none of these have the patient as a client. DME: 2 RW's, 2 Plain Walkers, Cane, Walk-in tub. Spouse gives permission to speak with MD, although he states patient has the medical background. Emergency contact: Ed (Yolie Jose F (spouse) [phone]. Independent ADL's: Yes, prior to Wednesday. Spouse has called EMS for assistance several times d/t patient sliding out of seat.CM discussed the availability of HH, Rehab, DME services. Patient MAY BENEFIT a stay in REHAB prior to dc home. Spouse states patient was a recent client of [facility]. Spouse reports that he is in the process of obtaining a lift-chair for patient.Patient has been hospitalized within the past 30 days. Denies use of community resources TRANSPORTATION PLANNING TECHNICIAN.Transportation at time of discharge: Spouse states he will provide transportation upon discharge. CM will assist with any discharge needs PRN. Patient Name: DAWIT CASAS Page 79402 at 1318 All edits/amendments must be made on the electronic document DICTATION DATE: 03/23/191316 WOOL PULLER: LAURA 03/23/191316 RPT#: [id number] DC DATE: STATUS: ADM IN [facility] [address] [place] [address] END OF REPORT
--- NOTE | 2019-03-23 13:26 | MORECARE ---
CASE MANAGEMENT DISCHARGE SUMMARY PATIENT: DAWIT KOHLER UNIT: [id number] ADM DATE: 03/23/19 AGE: 78 : 41 SEX: F ROOM/BED: D.2212 AUTHOR: CANDIS,DOC PHYSICIAN: REFERRING PHYSICIAN: CHIVO PHAM MD DATE OF SERVICE: 03/23/19 Discharge Plan Patient Name: DAWIT KOHLER Facility: [facility]:[place] : 1940 Planned Disposition: Anticipated Discharge Date: Discharge Date: Expected LOS: Initial Reviewer: [email or web address] Initial Review Date: 03/23/2019 Generated: 03/23/19 2:25 pm Comments DCP- Discharge Planning Updated by [id number]: Carlie Granados on 03/23/19 12:[address] CM met with patient/spouse to discuss initial discharge planning. Spouse/patient is in agreement to proceed with assessment. Patient is alert/oriented. Stairs/steps: PCP: Unknown, but in [place]. Pharmacy: [facility], [facility] [place] [facility], [facility]. Patient has been able to obtan all prescription drugs. HHS: Yes, spouse cannot remember the name. CM contacted [facility] and none of these have the patient as a client. DME: 2 RW's, 2 Plain Walkers, Cane, Walk-in tub. Spouse gives permission to speak with MD, although he states patient has the medical background. Emergency contact: Ed (Chet) Jose F (spouse) [phone]. Independent ADL's: Yes, prior to Wednesday. Spouse has called EMS for assistance several times d/t patient sliding out of seat.CM discussed the availability of HH, Rehab, DME services. Patient MAY BENEFIT a stay in REHAB prior to dc home. Spouse states patient was a recent client of [facility]. Spouse reports that he is in the process of obtaining a lift-chair for patient.Patient has been hospitalized within the past 30 days. Denies use of community resources TELECOMMUNICATIONS PROFESSIONAL.Transportation at time of discharge: Spouse states he will provide transportation upon discharge. CM will assist with any discharge needs PRN. DCPIA - Discharge Planning Initial Assessment Updated by [id number]: Carlie Granados on 03/23/19 1:19 pm * Is the patient Alert and Oriented? No * How many steps to enter\exit or inside your home? 3/2 w/o ra * PCP Unknown MD in [facility] * Pharmacy [facility], [facility], [facility] * Preadmission Environment Home with Family * ADLs Independent * Equipment Cane Rolling Walker Walker * Other Equipment Walk-in tub * List name and contact numbers for known caregivers / representatives who currently or will assist patient after discharge: Chet Kohler (Bill) [phone] (c) * Verbal permission to speak to the caregivers and representatives has been obtained from the patient. Yes * Community resources currently utilized Home Health * Please name any agencies selected above. Unable to obtain name HHS * Additional services required to return to the preadmission environment? Yes * Can the patient safely return to the preadmission environment? No * Has this patient been hospitalized within the prior 30 days at any hospital? Yes Last DP export: 03/23/19 12:18 p Patient Name: DAWIT KOHLER Page 45315 at 1326 All edits/amendments must be made on the electronic document DICTATION DATE: 03/23/19 1325 DRAWING MACHINE OPERATOR: LAURA 03/23/19 1325 RPT#: [id number] DC DATE: STATUS: ADM IN [facility] [address] [place] [address] END OF REPORT
--- NOTE | 2019-03-23 16:01 | MORECARE ---
CASE MANAGEMENT DISCHARGE SUMMARY PATIENT: DAWIT KOHLER UNIT: [id number] ADM DATE: 03/23/19 AGE: 78 : 41 SEX: F ROOM/BED: D.2909 AUTHOR: CANDIS,DOC PHYSICIAN: REFERRING PHYSICIAN: CHET ISSA MD DATE OF SERVICE: 03/23/19 Discharge Plan Patient Name: DAWIT KOHLER Facility: [facility]:[place] : 1940 Planned Disposition: Anticipated Discharge Date: Discharge Date: Expected LOS: Initial Reviewer: [email or web address] Initial Review Date: 03/23/2019 Generated: 03/23/19 5:01 pm Comments DCP- Discharge Planning Updated by [email or web address]: Lisa Saldaña on 03/23/19 2:[address] CM received a call from Dr. Rey. He states he would like this patient transferred to [place] to Dr. Ed Ponce. He states he did her surgery at [facility] on February 27. The patient is agreeable to transfer. tunnel form placing supervisor called by Katie () and approval to transfer received from Francoise (Admin donor services technician). I called the transfer team and spoke with Kristy and face sheet faxed. CM will continue to follow and assist with discharge planning/needs. DCP- Discharge Planning Updated by [id number]: Carlie Granados on 03/23/19 12:[address] CM met with patient/spouse to discuss initial discharge planning. Spouse/patient is in agreement to proceed with assessment. Patient is alert/oriented. Stairs/steps: PCP: Unknown, but in [place]. Pharmacy: [facility], [facility], [facility]. Patient has been able to obtan all prescription drugs. HHS: Yes, spouse cannot remember the name. CM contacted [facility] and none of these have the patient as a client. DME: 2 RW's, 2 Plain Walkers, Cane, Walk-in tub. Spouse gives permission to speak with , although he states patient has the medical background. Emergency contact: Ed Kohler (William) (spouse) [phone]. Independent ADL's: Yes, prior to Wednesday. Spouse has called EMS for assistance several times d/t patient sliding out of seat.CM discussed the availability of HH, Rehab, DME services. Patient MAY BENEFIT a stay in REHAB prior to dc home. Spouse states patient was a recent client of [facility]. Spouse reports that he is in the process of obtaining a lift-chair for patient.Patient has been hospitalized within the past 30 days. Denies use of community resources WOODWIND INSTRUMENT REPAIRER.Transportation at time of discharge: Spouse states he will provide transportation upon discharge. CM will assist with any discharge needs PRN. DCPIA - Discharge Planning Initial Assessment Updated by [id number]: Carlie Granados on 03/23/19 1:19 pm * Is the patient Alert and Oriented? No * How many steps to enter\exit or inside your home? 3/2 w/o ra * PCP Unknown MD in [facility] * Pharm[facility], [place] [facility] * Preadmission Environment Home with Family * ADLs Independent * Equipment Cane Rolling Walker Walker * Other Equipment Walk-in tub * List name and contact numbers for known caregivers / representatives who currently or will assist patient after discharge: Chet (Ed) Jose F [phone] (c) * Verbal permission to speak to the caregivers and representatives has been obtained from the patient. Yes * Community resources currently utilized Home Health * Please name any agencies selected above. Unable to obtain name [facility] * Additional services required to return to the preadmission environment? Yes * Can the patient safely return to the preadmission environment? No * Has this patient been hospitalized within the prior 30 days at any hospital? Yes External Providers External Provider: [facility] Next Contact Date: Service Request Date: Service Type: Resolution: Reviewer: Comments: Last DP export: 03/23/19 12:26 p Patient Name: DAWIT KOHLER Page 13445 at 1601 All edits/amendments must be made on the electronic document DICTATION DATE: 03/23/191600 TESTER ELECTRONIC SCALE: LAURA 03/23/191600 RPT#: [id number] DC DATE: STATUS: ADM IN [facility] [address] [place] [address] END OF REPORT
--- NOTE | 2019-03-23 19:52 | NUR ---
1800 RECEIVED CALL FROM TRANSFER CENTER STATING [facility] UN[facility] AND VERONICA LEONARD HAVING PRIVLAGES AT THEIR FACILTY. STATE HE ONLY DOES OUTPATIENT PROCEDURES AT CLINIC. THIS NURSE INVESTIGATED MATTER FOUND HE CARES FOR PATIENTS NEEDS AT [facility]. SPOKE TO CHARGE NURSE THERE SHE GAVE ME NUMBER FOR MD BRADY. SPOKE WITH TRANSFER CENTER GIVING THEM THE INFORMATION. 1830 [place] [facility]ENTER CALLED BACK WITH ACCEPTING MD SEBASTIAN GARRETT. DR. LEONARD WILL BE CONSULTING ON PT. PT GOING TO ROOM 308. 193 NO EMTALA FORM FOUND STARTED BY INITIATING STAFF. INITIATED BY THIS NURSE AND GIVEN TO Mel ST RN FOR COMPLETION. 1999 REPORT CALLED TO [facility] BY Mel ST RN
--- NOTE | 2019-03-23 23:10 | NUR ---
PATIENT ALERT AND ORENTED ABLE TO VOICE NEEDS AND WANTS TO STAFF. INFORMED IN REPORT THAT PT WAS TO TRANSFER TO [facility]. TILE MECHANIC HELPER INFORMED THAT THE TRANSFER WAS SET TO CALL REPORT. CALL TO [facility] AT 1955 SPOKE WITH JEFFREY WHO TRANSFERED ME TO [facility] FOR REPORT , REPORT GIVEN , CALL TO [facility] FOR VICE PRESIDENT PLANNING AND TRANSFER. THEY ARIVED AND LEFT WITH PATIENT AT 2129. PATIENT WAS ALERT ORENTED TALKING WITH BOTH HOSPITAL AND [facility] STAFF. F/C IN PLACE AND PATEN WITH YELLOW URIN TO BAG. IV TO RIGHT HAND IN PLACE AND PATEN , LIFE NET REMOVED NS RUNNING AT 125 FOR TRIP. ABDUCTION CUSHION IN PLACE.LEFT WITH [facility] STAFF AT 2129.
--- NOTE | 2019-03-26 16:24 | MORECARE ---
CASE MANAGEMENT DISCHARGE SUMMARY PATIENT: DAWIT KOHLER UNIT: [id number] ADM DATE: 03/23/19 AGE: 78 : 41 SEX: F ROOM/BED: D.9832 AUTHOR: CANDIS,DOC PHYSICIAN: REFERRING PHYSICIAN: CHET ISSA MD DATE OF SERVICE: 03/26/19 Discharge Plan Patient Name: DAWIT KOHLER Facility: [facility]:[place] : 1940 Planned Disposition: Anticipated Discharge Date: Discharge Date: 03/23/2019 Expected LOS: Initial Reviewer: [email or web address] Initial Review Date: 03/23/2019 Generated: 03/26/19 5:24 pm Comments DCP- Discharge Planning Updated by [email or web address]: Lisa Saldaña on 03/23/19 2:[address] CM received a call from Dr. Rey. He states he would like this patient transferred to [place] to Dr. Ed Ponce. He states he did her surgery at [facility] on February 27. The patient is agreeable to transfer. sample supervisor called by Katie () and approval to transfer received from Francoise (Admin loss control representative). I called the transfer team and spoke with Kristy and face sheet faxed. CM will continue to follow and assist with discharge planning/needs. DCP- Discharge Planning Updated by [email or web address]: Carlie Granados on 03/23/19 12:[address] CM met with patient/spouse to discuss initial discharge planning. Spouse/patient is in agreement to proceed with assessment. Patient is alert/oriented. Stairs/steps: PCP: Unknown, but in [place]. Pharmacy: [facility], [facility], [facility]. Patient has been able to obtan all prescription drugs. HHS: Yes, spouse cannot remember the name. CM contacted [facility] and none of these have the patient as a client. DME: 2 RW's, 2 Plain Walkers, Cane, Walk-in tub. Spouse gives permission to speak with , although he states patient has the medical background. Emergency contact: Ed Kohler (William) (spouse) [phone]. Independent ADL's: Yes, prior to Wednesday. Spouse has called EMS for assistance several times d/t patient sliding out of seat.CM discussed the availability of HH, Rehab, DME services. Patient MAY BENEFIT a stay in REHAB prior to dc home. Spouse states patient was a recent client of [facility]. Spouse reports that he is in the process of obtaining a lift-chair for patient.Patient has been hospitalized within the past 30 days. Denies use of community resources BRIQUETTE OPERATOR.Transportation at time of discharge: Spouse states he will provide transportation upon discharge. CM will assist with any discharge needs PRN. DCPIA - Discharge Planning Initial Assessment Updated by [id number]: Carlie Granados on 03/23/19 1:19 pm * Is the patient Alert and Oriented? No * How many steps to enter\exit or inside your home? 3/2 w/o ra * PCP Unknown MD in [facility] * Pharmacy [facility], [facility] [place] [facility], [facility] * Preadmission Environment Home with Family * ADLs Independent * Equipment Cane Rolling Walker Walker * Other Equipment Walk-in tub * List name and contact numbers for known caregivers / representatives who currently or will assist patient after discharge: Chet (Ed) Kohler [phone] (c) * Verbal permission to speak to the caregivers and representatives has been obtained from the patient. Yes * Community resources currently utilized Home Health * Please name any agencies selected above. Unable to obtain name HHS * Additional services required to return to the preadmission environment? Yes * Can the patient safely return to the preadmission environment? No * Has this patient been hospitalized within the prior 30 days at any hospital? Yes Last DP export: 03/23/19 3:01 p Patient Name: DAWIT KOHLER Page 51028 at 1624 All edits/amendments must be made on the electronic document DICTATION DATE: 03/26/191623 AEROSPACE ENGINEER OFFICER ARMAMENT: LAURA 03/26/191623 RPT#: [id number] DC DATE:03/23/19 STATUS: DIS IN [facility] [address] [place] [address] END OF REPORT
== END 2019-03-23 21:30 | disposition short-term general hospital (02) | DRG 561 ==
LOC: D.ER 08:37 → D.MS 11:27
PROVIDERS: Family Medicine; ADMIT Family Medicine; ATTEND Family Medicine
PROC: 0SWBXJZ Revision of Synthetic Substitute in Left Hip Joint, External Approach (ICD-10-PCS; principal; 2019-03-23)
DX: T84.021A Dislocation of internal left hip prosthesis, initial encounter (principal); Z91.81 History of falling; Y93.01 Activity, walking, marching and hiking; R53.81 Other malaise; M81.0 Age-related osteoporosis without current pathological fracture; Z95.0 Presence of cardiac pacemaker; I45.6 Pre-excitation syndrome

== ENCOUNTER 2019-03-25 14:06 | Emergency (ER) | payer MEDICARE, OTHER ==
[~2019-03-25] VITALS: Ht 162.6 cm; Wt 59.1 kg
[2019-03-25 14:06] VITALS: Ht 162.6 cm; Wt 59.1 kg
[2019-03-25] MEDS ORDERED: PROTONIX40 MG PO (14:12)
[2019-03-25] MEDS ORDERED: CARAFATE1 G PO (14:12)
[2019-03-25 20:55] VITALS: BP 143/65
== END 2019-03-25 20:55 | disposition other institution (70) ==
LOC: D.ER 14:06
DX: S72.22XA Displaced subtrochanteric fracture of left femur, initial encounter for closed fracture (principal); X58.XXXA Exposure to other specified factors, initial encounter; Y93.9 Activity, unspecified; Y92.9 Unspecified place or not applicable; Z95.0 Presence of cardiac pacemaker; D64.9 Anemia, unspecified; Z98.890 Other specified postprocedural states